=== PATIENT | female | born 1960 | race Caucasian/White ===

== ENCOUNTER → 2017-09-13 | Outpatient (CLI) | payer MEDICARE, OTHER ==
--- NOTE | 2017-09-13 09:05 | CT ---
EXAMINATION TYPE: CT iac wo con DATE OF EXAM: 09/13/2017 COMPARISON: NONE HISTORY: Unspecified cholesteatoma CT DLP: 150.00mGycm Automated exposure control for dose reduction was used. FINDINGS: The external auditory canals are patent bilaterally. Complete opacification right-sided mastoid air cells compatible with mastoiditis. No evidence of bone destruction. Left-sided mastoid air cells are well-aerated. There is thickening of the right-sided tympanic membrane. Left-sided tympanic membrane has a normal a ppearance. Small amount of soft tissue seen within the right-sided epitympanum which may reflect cholesteatoma. Left-sided epitympanic and is free of soft tissue. Ossicular chains are symmetric and free of erosive or destructive process. The scutum is preserved bilaterally. The cochlea and the semicircular canals are symmetric and unremarkable. Vestibular aqueduct and inte rnal carotid canal appear unremarkable. Temporomandibular joints are maintained bilaterally. IMPRESSION: 1. The findings as discussed for which I cannot exclude a small right-sided cholesteatoma. 2. Thickening of the right tympanic membrane. 3. Near complete opacification right-sided mastoid air cells.
== END | disposition home or self-care (01) ==
LOC: RADCTMAIN 07:30
PROVIDERS: ATTEND Otolaryngology
DX: H73.891 Other specified disorders of tympanic membrane, right ear (principal)
CPT/HCPCS: 70480

== ENCOUNTER → 2018-03-14 | Outpatient (CLI) | payer MEDICARE, OTHER ==
[2018-03-14 12:49] LABS: ALT 26 U/L (9-52); AST 20 U/L (14-36); Cholesterol 232 mg/dL (<200); HDL Cholesterol 83 mg/dL (40-60); LDL Cholesterol,Calculated 134 mg/dL (0-99); Triglycerides 76 mg/dL (<150)
== END | disposition home or self-care (01) ==
LOC: LABWHC1 11:58
PROVIDERS: ATTEND Internal Medicine Cardiovascular Disease
DX: E78.2 Mixed hyperlipidemia (principal)
CPT/HCPCS: 36415; 80061; 84450; 84460

== ENCOUNTER 2019-05-30 13:48 | Observation (INO) | payer MEDICARE ==
[2019-05-30] MEDS ORDERED: KETOROLAC 30 MG/ML 1 ML VIAL IVP STA (14:45)
[2019-05-30] MEDS ORDERED: SODIUM CHLORIDE 0.9% 1,000 ML IV STA (14:45)
--- NOTE | 2019-05-30 14:56 | ED ---
General Adult HPI - General Chief complaint: Chest Pain Stated complaint: Chest pain Time Seen by Provider: 05/30/19 14:33 Source: patient Mode of arrival: ambulatory - History of Present Illness Initial comments: Dictation was produced using [employer] dictation software. please excuse any grammatical, word or spelling errors. Chief Complaint: 58-year-old female presents with chest pain and flank pain. History of Present Illness: T 89-year-old female presents today with chest pain and flank pain. She is here mostly for the left-sided flank pain. Patient has any history of kidney stones. States that the pain is colicky and was up in the left flank however is now down to the left groin. Patient denies any urinary symptoms. She is not sure if there is any difference in her urine appearance. Patient has a history of chest pain. She's been having intermittent chest pain episodes for the last several months. She does have established care with cardiology. 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 Patient states that her remediation consultant did not want to perform any further studies. Patient states pain is like a squeezing pressure to the chest with radiation to the bilateral shoulders patient does complain of some clammy diaphoresis and nausea during these episodes patient used to be an opiate abuser however she has been sober from opiates for approximately one year. The ROS documented in this emergency department record has been reviewed and confirmed by me. Those systems with pertinent positive or negative responses have been documented in the HPI. All other systems are other negative and/or noncontributory. PHYSICAL EXAM: General Impression: Alert and oriented x3, mild distress HEENT: Normocephalic atraumatic, extra-ocular movements intact, pupils equal and reactive to light bilaterally, mucous membranes moist. Cardiovascular: Heart regular rate and rhythm, S1&S2 audible, no murmurs, rubs or gallops Chest: Lungs clear to auscultation bilaterally, no rhonchi, no wheeze, no rales Abdomen: Bowel sounds present, abdomen soft, non-tender, non-distended, no organomegaly, mild left CVA tenderness Musculoskeletal: Pulses present and equal in all extremities, no peripheral edema Motor: no focal deficits noted Neurological: CN II-XII grossly intact, no focal motor or sensory deficits noted Skin: Intact with no visualized rashes Psych: Normal affect and mood ED course: 58 yo female presents with chest pain and flank pain. Vital signs upon arrival are within acceptable limits. EKG shows no findings to suggest ST segment elevation TN versus myocardial ischemia. Laboratory evaluation obtained. CBC, coag panel, metabolic panel is unremarkable. First troponin is negative. Chest x-ray shows no acute processes. CT of the abdomen is pelvis was obtained showing no acute processes. No hydronephrosis. No identifiable kidney stones. Pending urine studies. Patient also had secondary complaint of chest pain. Patient's chest pain is atypical chest pain with typical features. His cardiac workup so far is negative. Patient to be admitted for surgical needs a cardiology consultation. EKG interpretation: Ventricular rate 4, sinus rhythm, AR interval 112, QRS 86, QTC 411. No AR prolongation, no QTC prolongation, no ST or T-wave changes noted. No old EKG for comparison. - Related Data Home Medications Medication Instructions Recorded Confirmed Albuterol Sulfate [Ventolin HFA] 2 puff INHALATION RT-Q4H PRN 05/30/19 05/30/19 Aspirin 325 mg PO DAILY PRN 05/30/19 05/30/19 Atorvastatin [Lipitor] 40 mg PO HS 05/30/19 05/30/19 Naproxen Sodium [Aleve] 220 mg PO DAILY PRN 05/30/19 05/30/19 Umeclidinium [place] [Incruse 1 puff INHALATION RT-DAILY 05/30/19 05/30/19 Ellipta] Allergies Allergy/AdvReac Type Severity Reaction Status Date / Time Penicillins AdvReac Swelling Verified 05/30/19 15:24 Review of Systems ROS Statement: Those systems with pertinent positive or pertinent negative responses have been documented in the HPI. ROS Other: All systems not noted in ROS Statement are negative. Past Medical History Past Medical History: CVA/TIA Additional Past Medical History / Comment(s): TIA x3, back and lt shoulder pain History of Any Multi-Drug Resistant Organisms: None Reported Past Surgical History: Breast Surgery, Ear Surgery Additional Past Surgical History / Comment(s): lumpectomy Past Anesthesia/Blood Transfusion Reactions: Motion Sickness Past Psychological History: No Psychological Hx Reported Smoking Status: Former smoker Past Alcohol Use History: None Reported Past Drug Use History: None Reported - Past Family History Sister(s) Additional Family Medical History / Comment(s): autoimmune-crohns, lupus Mother Family Medical History: Congestive Heart Failure (CHF), Diabetes Mellitus, Renal Disease Course Vital Signs 05/30/19 05/30/19 13:54 17:10 Temperature 98.2 F Pulse Rate 86 76 Respiratory 18 20 Rate Blood Pressure 146/92 119/89 O2 Sat by Pulse 99 99 Oximetry Medical Decision Making - Lab Data Result diagrams: 05/30/19 14:40 05/30/19 14:40 Lab Results 05/30/19 05/30/19 05/30/19 Range/Units 14:40 14:40 14:40 WBC 11.0 H (3.8-10.6) k/uL RBC 3.86 (3.80-5.40) m/uL Hgb 12.7 (11.4-16.0) gm/dL Hct 38.4 (34.0-46.0) % MCV 99.4 (80.0-100.0) fL MCH 32.8 (25.0-35.0) pg MCHC 33.0 (31.0-37.0) g/dL RDW 12.6 (11.5-15.5) % Plt Count 367 (150-450) k/uL Neutrophils % 84 % Lymphocytes % 7 % Monocytes % 5 % Eosinophils % 1 % Basophils % 1 % Neutrophils # 9.2 H (1.3-7.7) k/uL Lymphocytes # 0.8 L (1.0-4.8) k/uL Monocytes # 0.5 (0-1.0) k/uL Eosinophils # 0.2 (0-0.7) k/uL Basophils # 0.1 (0-0.2) k/uL PT 9.5 (9.0-12.0) sec INR 0.9 (<1.2) APTT 23.7 (22.0-30.0) sec Sodium 140 (137-145) mmol/L Potassium 4.2 (3.5-5.1) mmol/L Chloride 106 (98-107) mmol/L Carbon Dioxide 20 L (22-30) mmol/L Anion Gap 14 mmol/L BUN 16 (7-17) mg/dL Creatinine 0.53 (0.52-1.04) mg/dL Est GFR (CKD-EPI)AfAm >90 (>60 ml/min/1.73 sqM) Est GFR (CKD-EPI)NonAf >90 (>60 ml/min/1.73 sqM) Glucose 114 H (74-99) mg/dL Calcium 9.8 (8.4-10.2) mg/dL Magnesium 2.0 (1.6-2.3) mg/dL Total Bilirubin 1.0 (0.2-1.3) mg/dL AST 32 (14-36) U/L ALT 38 (9-52) U/L Alkaline Phosphatase 108 (38-126) U/L Troponin I (0.000-0.034) ng/mL Total Protein 7.4 (6.3-8.2) g/dL Albumin 4.4 (3.5-5.0) g/dL 05/30/19 Range/Units 14:40 WBC (3.8-10.6) k/uL RBC (3.80-5.40) m/uL Hgb (11.4-16.0) gm/dL Hct (34.0-46.0) % MCV (80.0-100.0) fL MCH (25.0-35.0) pg MCHC (31.0-37.0) g/dL RDW (11.5-15.5) % Plt Count (150-450) k/uL Neutrophils % % Lymphocytes % % Monocytes % % Eosinophils % % Basophils % % Neutrophils # (1.3-7.7) k/uL Lymphocytes # (1.0-4.8) k/uL Monocytes # (0-1.0) k/uL Eosinophils # (0-0.7) k/uL Basophils # (0-0.2) k/uL PT (9.0-12.0) sec INR (<1.2) APTT (22.0-30.0) sec Sodium (137-145) mmol/L Potassium (3.5-5.1) mmol/L Chloride (98-107) mmol/L Carbon Dioxide (22-30) mmol/L Anion Gap mmol/L BUN (7-17) mg/dL Creatinine (0.52-1.04) mg/dL Est GFR (CKD-EPI)AfAm (>60 ml/min/1.73 sqM) Est GFR (CKD-EPI)NonAf (>60 ml/min/1.73 sqM) Glucose (74-99) mg/dL Calcium (8.4-10.2) mg/dL Magnesium (1.6-2.3) mg/dL Total Bilirubin (0.2-1.3) mg/dL AST (14-36) U/L ALT (9-52) U/L Alkaline Phosphatase (38-126) U/L Troponin I <0.012 (0.000-0.034) ng/mL Total Protein (6.3-8.2) g/dL Albumin (3.5-5.0) g/dL Disposition Clinical Impression: Chest pain, Flank pain Disposition: ADMITTED IP TO THIS HOSP Condition: Fair Referrals: Kim Tang MD [Primary Care Provider] - 1-2 days Decision Time: 17:30
[2019-05-30 15:00] LABS: Basophils # (A) 0.1 k/uL (0-0.2); Basophils % (A) 1 %; Eosinophils # (A) 0.2 k/uL (0-0.7); Eosinophils % (A) 1 %; HCT 38.4 % (34.0-46.0); HGB 12.7 gm/dL (11.4-16.0); Lymphocytes # (A) 0.8 k/uL (1.0-4.8); Lymphocytes % (A) 7 %; MCH 32.8 pg (25.0-35.0); MCV 99.4 fL (80.0-100.0); Mean Platelet Volume 6.7; Monocytes # (A) 0.5 k/uL (0-1.0); Monocytes % (A) 5 %; Neutrophils # (A) 9.2 k/uL (1.3-7.7); Neutrophils % (A) 84 %; Platelet Count 367 k/uL (150-450); RBC 3.86 m/uL (3.80-5.40); RDW 12.6 % (11.5-15.5)
[2019-05-30 15:09] LABS: INR 0.9 (<1.2); Partial Thromboplastin Time 23.7 sec (22.0-30.0); Prothrombin Time 9.5 sec (9.0-12.0)
[2019-05-30 15:22] LABS: ALT 38 U/L (9-52); AST 32 U/L (14-36); African American GFR (CKD) >90 (>60 ml/min/1.73 sqM); Albumin 4.4 g/dL (3.5-5.0); Alkaline Phosphatase 108 U/L (38-126); Anion Gap 14 mmol/L; Blood Urea Nitrogen 16 mg/dL (7-17); Calcium 9.8 mg/dL (8.4-10.2); Carbon Dioxide 20 mmol/L (22-30); Chloride 106 mmol/L (98-107); Glucose 114 mg/dL (74-99); Potassium 4.2 mmol/L (3.5-5.1); Sodium 140 mmol/L (137-145); Total Protein 7.4 g/dL (6.3-8.2)
--- NOTE | 2019-05-30 15:34 | XR ---
EXAMINATION TYPE: XR chest 2V DATE OF EXAM: 05/30/2019 COMPARISON: 10/18/2012 TECHNIQUE: PA and lateral views submitted. HISTORY: Chest pain FINDINGS: The lungs are clear and there is no pneumothorax, pleural effusion, or focal pneumonia. Arthropathy of the right shoulder. Biapical pleural thickening. No overt failure. Hypertrophic change of the spi ne. Heart size normal. IMPRESSION: 1. No acute process.
[2019-05-30] MEDS ORDERED: MORPHINE SULFATE 4 MG/ML SYRINGE IV STA (15:47)
--- NOTE | 2019-05-30 16:49 | CT ---
EXAMINATION TYPE: CT abdomen pelvis w con DATE OF EXAM: 05/30/2019 COMPARISON: HISTORY: Abdominal pain and vomiting CT DLP: 783 mGycm Automated exposure control for dose reduction was used. TECHNIQUE: Helical acquisition of images was performed from the lung bases through the pelvis. CONTRAST: Performed without Oral Contrast and with IV Contrast, patient injected with 100 mL of Isovue 300. FINDINGS: Lung bases are clear of infiltrate. There is no pleural effusion. Heart size is normal. There is no p ericardial effusion. Stomach appears normal. Liver spleen pancreas gallbladder appear normal. Bile ducts are not dilated. There is no adrenal mass. Kidneys show satisfactory contrast opacification. There is no hydronephrosi s. Ureters are not dilated. There is no retroperitoneal adenopathy. Bladder distends smoothly. There is no free fluid in the pelvis. There is no mesenteric edema. Appendix is seen and appears normal. There are some jejunal loops with mild wall thickening. There is thickening of the third and fourth p art of the duodenum. I see no gastric wall thickening. There is moderate narrowing of the disc spaces at L2-3 and L3-4 with spur formation. There is no comp ression fracture. Vertebra have normal alignment. Bony pelvis is intact. There is a mild relative spi nal stenosis at L2-3. Uterus is anteverted. There is no inguinal hernia. Distal small bowel loops tl ear normal. IMPRESSION: MILD WALL THICKENING OF THE PROXIMAL JEJUNUM AND THE DISTAL DUODENUM THAT COULD RELATE TO GASTROENTER ITIS. OTHERWISE NEGATIVE EXAM. NO EVIDENCE OF A BOWEL OBSTRUCTION.
[2019-05-30 17:31] LABS: Appearance,Urine Clear (Clear); Bilirubin,Urine Negative (Negative); Blood,Urine Negative (Negative); Color,Urine Yellow; Glucose,Urine (UA) Negative (Negative); Ketones,Urine 2+ (Negative); Leukocyte Esterase,Urine Small (Negative); Mucus,Urine Rare /hpf; Nitrite,Urine Negative (Negative); PH, Urine 6.5 (5.0-8.0); Protein,Urine Negative (Negative); RBC,Urine 5 /hpf (0-5); Specific Gravity,Urine 1.038 (1.001-1.035); Squamous Epithelial Cell,Urine 5 /hpf (0-4); Urobilinogen,Urine <2.0 mg/dL (<2.0)
[2019-05-30] MEDS ORDERED: ASPIRIN 81 MG PO STA (17:31)
[2019-05-30] MEDS ORDERED: NITROGLYCERIN SL TABS 0.4 MG TAB SUBLINGUAL PRN (17:31)
[2019-05-30] MEDS ORDERED: MAGNESIUM HYDROXIDE 2,400 MG/10 ML CUP PO PRN (18:47)
[2019-05-30] MEDS ORDERED: ALBUTEROL NEBULIZED 2.5 MG/3 ML INHALATION PRN (19:00)
[2019-05-30] MEDS ORDERED: NALOXONE 0.4 MG/ML 1 ML VIAL IV PRN (19:00)
--- NOTE | 2019-05-30 19:36 | P.HPIM ---
History of Present Illness H&P Date: 05/30/19 Chief Complaint: Chest pain 58 year old F with PMH of COPD presents to the ED for chest pain. Patient reports chest pain that has been ongoing for the past 2 years. Patient s madisyn she sees Dr. Gaytan and gets a stress test yearly. Her stress test in the past has been negative. Patient reports chest pain that started this morning. Pain is 11/10 in severity described as pressure like. There are no alleviating or aggravating factors. Patient also complains of left lower quadrant abdominal pain that radiates into the left groin. She denies any urinary symptoms. Patient reports constipation, last bowel movement was 4 days ago. She attempted to have a bowel movement today, small bowel movement with streaks of blood on the toilet paper. Patient also reports bilateral shoulder pain that radiates to both of her arms. This has been ongoing for quite some time. She denies any neck pain. Patient denies any headache, lower extremity edema, nausea or vomiting, fever or chills, cough, shortness of breath, palpitations, dizziness, numbness/weakness/tingling of the extremities. Patient is admitted for chest pain, rule out acute coronary syndrome, Cardiology is consulted. Past Medical History Past Medical History: COPD, CVA/TIA, Eye Disorder, Hearing Disorder / Deafness, Hyperlipidemia, Musculoskeletal Disorder Additional Past Medical History / Comment(s): TIA x3, back and lt shoulder pain, dry eyes, holes in ear drums, L2-L4 stenosis with spurs, arthritis History of Any Multi-Drug Resistant Organisms: None Reported Past Surgical History: Breast Surgery, Ear Surgery Additional Past Surgical History / Comment(s): lumpectomy Past Anesthesia/Blood Transfusion Reactions: Motion Sickness Past Psychological History: Anxiety Smoking Status: Former smoker Past Alcohol Use History: None Reported Additional Past Alcohol Use History / Comment(s): smoked 41 years 3ppd Past Drug Use History: Marijuana Additional Drug Use History / Comment(s): medical marijuana card guevara - Past Family History Sister(s) Additional Family Medical History / Comment(s): autoimmune-crohns, lupus Mother Family Medical History: Congestive Heart Failure (CHF), Diabetes Mellitus, Renal Disease Medications and Allergies Home Medications Medication Instructions Recorded Confirmed Type Albuterol Sulfate [Ventolin HFA] 2 puff INHALATION RT-Q4H PRN 05/30/19 05/30/19 History Aspirin 325 mg PO DAILY PRN 05/30/19 05/30/19 History Atorvastatin [Lipitor] 40 mg PO HS 05/30/19 05/30/19 History Naproxen Sodium [Aleve] 220 mg PO DAILY PRN 05/30/19 05/30/19 History Umeclidinium [place] [Incruse 1 puff INHALATION RT-DAILY 05/30/19 05/30/19 History Ellipta] Allergies Allergy/AdvReac Type Severity Reaction Status Date / Time adhesive AdvReac Rash/Hives Verified 05/30/19 18:37 Penicillins AdvReac Swelling Verified 05/30/19 15:24 Physical Exam Vitals: Vital Signs Temp Pulse Pulse Resp BP BP Pulse Ox 05/30/19 18:17 97.8 F 85 19 149/81 98 05/30/19 17:55 98.2 F 83 20 132/78 98 05/30/19 17:10 76 20 119/89 99 05/30/19 13:54 98.2 F 86 18 146/92 99 Intake and Output 05/30/19 05/30/19 05/30/19 06:59 14:59 22:59 Other: Weight 68.039 kg General: [non toxic], [no distress], [appears at stated age] Derm: [warm], [dry] Head: [atraumatic], [normocephalic], [symmetric] Eyes: [EOMI], [no lid lag], [anicteric sclera] Mouth: [no lip lesion], [mucus membranes moist] Cardiovascular: [S1S2 reg], [no murmur], [positive DP pulse bilateral], Lungs: [CTA bilateral], [no rhonchi, no rales] , [no accessory muscle use] Abdominal: [soft], [ nontender to palpation], [no guarding], [no appreciable organomegaly] Ext: [no gross muscle atrophy], [no edema], [no contractures] Neuro: [ CN II-XI grossly intact], [no focal neuro deficits] Psych: [Alert], [oriented], [appropriate affect] Results CBC & Chem 7: 05/30/19 14:40 05/30/19 14:40 Labs: Abnormal Lab Results - Last 24 Hours (Table) 05/30/19 05/30/19 05/30/19 Range/Units 14:40 14:40 17:05 WBC 11.0 H (3.8-10.6) k/uL Neutrophils # 9.2 H (1.3-7.7) k/uL Lymphocytes # 0.8 L (1.0-4.8) k/uL Carbon Dioxide 20 L (22-30) mmol/L Glucose 114 H (74-99) mg/dL Ur Specific [place] 1.038 H (1.001-1.035) Urine Ketones 2+ H (Negative) Ur Leukocyte Esterase Small H (Negative) Ur Squamous Epith Cells 5 H (0-4) /hpf Urine Mucus Rare H (None) /hpf Thrombosis Risk Factor Assmnt - Choose All That Apply Any of the Below Risk Factors Present?: Yes Each Factor Represents 1 point: Abnormal pulmonary function (COPD), Age 41-60 years, Obesity (BMI >25) Other Risk Factors: No Other congenital or acquired thrombophilia - If yes, enter type in comment: No Thrombosis Risk Factor Assessment Total Risk Factor Score: 3 Thrombosis Risk Factor Assessment Level: Moderate Risk Assessment and Plan Assessment: Assessment and Plan Chest pain rule out acute coronary syndrome Leukocytosis Metabolic acidosis Abnormal UA Initial troponin negative. Plans: Trend troponin/EKG to rule out ACS. Telemetry monitoring. Cardiology consultation. Follow-up echocardiogram. Continue aspirin and Lipitor. No signs of infection. Afebrile. Plan: Continue to monitor. Bicarbonate of 20. Unknown significance. Plans: Repeat BMP in the morning. positive leukocyte esterase. Plans: Asymptomatic, no antibiotics indicated. DVT prophylaxis: [SCD] Discussed with: [Patient] Anticipated discharge: [1-2 days] Anticipated discharge place: [home] A total of [30] minutes was spent on the care of this complex patient more than 50% of the time was spent in counseling and care coordination. PCP is Dr. Tang. Patient is full code. Names her Theron decision- maker indicates that she can't make decisions for herself.
[2019-05-30] MEDS: MORPHINE SULFATE 2 MG/ML SYRINGE IVP PRN (20:39)
[2019-05-30] MEDS ORDERED: ATORVASTATIN 40 MG TAB PO SCH (21:00)
[2019-05-30] MEDS ORDERED: ONDANSETRON 4 MG/2 ML VIAL IVP PRN (21:03)
[2019-05-31] MEDS: MORPHINE SULFATE 2 MG/ML SYRINGE IVP PRN (02:09)
[2019-05-31 04:20] LABS: Cholesterol 205 mg/dL (<200); HDL Cholesterol 90 mg/dL (40-60); LDL Cholesterol,Calculated 99 mg/dL (0-99); Triglycerides 82 mg/dL (<150)
[2019-05-31] MEDS ORDERED: ACETAMINOPHEN TAB 325 MG TAB PO PRN (07:29)
[2019-05-31 08:13] LABS: African American GFR (CKD) >90 (>60 ml/min/1.73 sqM); Anion Gap 9 mmol/L; Blood Urea Nitrogen 14 mg/dL (7-17); Calcium 9.3 mg/dL (8.4-10.2); Carbon Dioxide 24 mmol/L (22-30); Chloride 106 mmol/L (98-107); Glucose 99 mg/dL (74-99); Potassium 4.1 mmol/L (3.5-5.1); Sodium 139 mmol/L (137-145)
[2019-05-31 08:24] LABS: Basophils % (A) 0 %; Eosinophils # (A) 0.3 k/uL (0-0.7); Eosinophils % (A) 3 %; HCT 38.3 % (34.0-46.0); HGB 12.9 gm/dL (11.4-16.0); Lymphocytes # (A) 1.3 k/uL (1.0-4.8); Lymphocytes % (A) 15 %; MCH 34.2 pg (25.0-35.0); MCHC 33.7 g/dL (31.0-37.0); MCV 101.3 fL (80.0-100.0); Mean Platelet Volume 6.5; Monocytes # (A) 0.5 k/uL (0-1.0); Monocytes % (A) 6 %; Neutrophils # (A) 6.5 k/uL (1.3-7.7); Neutrophils % (A) 74 %; Platelet Count 340 k/uL (150-450); RBC 3.78 m/uL (3.80-5.40); RDW 12.7 % (11.5-15.5); WBC 8.8 k/uL (3.8-10.6)
[2019-05-31 08:57] VITALS: RESP 16
[2019-05-31] MEDS ORDERED: ASPIRIN 325 MG TAB PO SCH (09:00)
[2019-05-31] MEDS ORDERED: ASPIRIN 81 MG PO SCH (09:00)
--- NOTE | 2019-05-31 11:34 | P.CRDCN ---
History of Present Illness History of present illness: This is a pleasant 58-year-old female past medical history significant for dyslipidemia, former nicotine dependence and history of TIA in the past. She follows in the office with Dr. Gaytan. We've been asked to see her in consultation secondary to chest discomfort. She states over the previous 3 weeks intermittently she has felt a intense pain in her back. She states it feels like somebody is squeezing both of her shoulders and pushing down on her body. The pain radiates down her torso and down both her arms. The pain is excruciating and brings her to her knees. When it happens it lasts for a few seconds until she flinches over and then the pain subsides. She denies any associated discomfort in the chest. At times she feels intermittent palpitations or fluttering in the chest, shortness of breath, lightheaded and nausea. She is seen and examined resting comfortably in bed in no acute distress. She states that the time she is pain-free. EKG obtained on admission is sinus mechanism with nonspecific abnormalities noted. Repeat EKG 2 both reveal persistent sinus mechanism. Telemetry tracings unremarkable for an acute arrhythmia. Chest x-ray is negative for an acute cardiopulmonary process. Laboratory data reviewed, cardiac enzymes negative 3. Currently cardiac medications include aspirin 81 mg daily and atorvastatin 40 mg daily. At the time of my exam: CONSTITUTIONAL: Denies fever. Denies chills. EYES: Denies blurred vision. Denies vision changes. Denies eye pain. EARS, NOSE, MOUTH & THROAT: Denies headache. Denies sore throat. Denies ear pain. CARDIOVASCULAR: Denies chest pain. Denies shortness of breath. Denies orthopnea. Denies PND. Denies palpitations. RESPIRATORY: Denies cough. GASTROINTESTINAL: Denies abdominal pain. Denies diarrhea. Denies constipation. Denies nausea. Denies vomiting. MUSCULOSKELETAL: Denies myalgias. INTEGUMENTARY: Denies pruitis. Denies rash. NEUROLOGIC: Denies numbness. Denies tingling. Denies weakness. PSYCHIATRIC: Denies anxiety. Denies depression. ENDOCRINE: Denies fatigue. Denies weight change. Denies polydipsia. Denies polyurina. GENITOURINARY: Denies burning, hematuria or urgency with micturation. HEMATOLOGIC: Denies history of anemia. Denies bleeding. Blood pressure 115/76 heart rate 81 afebrile maintaining oxygen saturation on room air GENERAL: This is a 58-year-old female in no apparent distress at the time of my examination. HEENT: Head is atraumatic, normocephalic. Pupils are equal, round. Sclerae anicteric. Conjunctivae are clear. Mucous membranes of the mouth are moist. Neck is supple. There is no jugular venous distention. No carotid bruit is heard. LUNGS: Clear to auscultation no wheezes, rales or rhonchi. No chest wall tenderness is noted on palpation or with deep breathing. HEART: Regular rate and rhythm without murmurs, rubs or gallops. S1 and S2 heard. ABDOMEN: Soft, nontender. Bowel sounds are heard. No organomegaly noted. EXTREMITIES: No evidence of peripheral edema and no calf tenderness noted. VASCULAR: Radial and dorsalis pedis pulses palpated, no evidence of clubbing. NEUROLOGIC: Patient is awake, alert and oriented x3. ASSESSMENT Chest pain, atypical. An acute coronary event has been ruled out. Dyslipidemia Former nicotine dependence PLAN Recent dobutamine stress test obtained from the office June 2018 was negative for stress-induced ischemia. Advised her to increase activity and ambulation in the halls. Stable for discharge from a cardiac perspective. Follow up with Dr. Gaytan upon discharge. Nurse Practitioner note has been reviewed, I agree with a documented findings and plan of care. Patient was seen and examined. Past Medical History Past Medical History: COPD, CVA/TIA, Eye Disorder, Hearing Disorder / Deafness, Hyperlipidemia, Musculoskeletal Disorder Additional Past Medical History / Comment(s): TIA x3, back and lt shoulder pain, dry eyes, holes in ear drums, L2-L4 stenosis with spurs, arthritis History of Any Multi-Drug Resistant Organisms: None Reported Past Surgical History: Breast Surgery, Ear Surgery Additional Past Surgical History / Comment(s): lumpectomy Past Anesthesia/Blood Transfusion Reactions: Motion Sickness Past Psychological History: Anxiety Smoking Status: Former smoker Past Alcohol Use History: None Reported Additional Past Alcohol Use History / Comment(s): smoked 41 years 3ppd Past Drug Use History: Marijuana Additional Drug Use History / Comment(s): medical marijuana card guevara - Past Family History Sister(s) Additional Family Medical History / Comment(s): autoimmune-crohns, lupus Mother Family Medical History: Congestive Heart Failure (CHF), Diabetes Mellitus, Renal Disease Medications and Allergies Home Medications Medication Instructions Recorded Confirmed Type Albuterol Sulfate [Ventolin HFA] 2 puff INHALATION RT-Q4H PRN 05/30/19 05/30/19 History Aspirin 325 mg PO DAILY PRN 05/30/19 05/30/19 History Atorvastatin [Lipitor] 40 mg PO HS 05/30/19 05/30/19 History Naproxen Sodium [Aleve] 220 mg PO DAILY PRN 05/30/19 05/30/19 History Umeclidinium [place] [Incruse 1 puff INHALATION RT-DAILY 05/30/19 05/30/19 History Ellipta] Allergies Allergy/AdvReac Type Severity Reaction Status Date / Time adhesive AdvReac Rash/Hives Verified 05/30/19 18:37 Penicillins AdvReac Swelling Verified 05/30/19 15:24 Physical Exam Vitals: Vital Signs Temp Pulse Pulse Resp BP BP Pulse Ox 05/31/19 04:00 98.2 F 69 18 106/61 98 05/31/19 00:00 98.1 F 80 18 118/69 97 05/30/19 18:17 97.8 F 85 19 149/81 98 05/30/19 17:55 98.2 F 83 20 132/78 98 05/30/19 17:10 76 20 119/89 99 05/30/19 13:54 98.2 F 86 18 146/92 99 Intake and Output 05/30/19 05/31/19 05/31/19 22:59 06:59 14:59 Other: Voiding Method Toilet Toilet # Voids 1 Results 05/31/19 08:09 05/31/19 03:32 Cardiac Enzymes 05/30/19 05/30/19 05/30/19 Range/Units 14:40 14:40 20:54 AST 32 (14-36) U/L Troponin I <0.012 <0.012 (0.000-0.034) ng/mL 05/31/19 Range/Units 03:32 AST (14-36) U/L Troponin I <0.012 (0.000-0.034) ng/mL Coagulation 05/30/19 Range/Units 14:40 PT 9.5 (9.0-12.0) sec APTT 23.7 (22.0-30.0) sec Lipids 05/31/19 Range/Units 03:32 Triglycerides 82 (<150) mg/dL Cholesterol 205 H (<200) mg/dL HDL Cholesterol 90 H (40-60) mg/dL CBC 05/30/19 Range/Units 14:40 WBC 11.0 H (3.8-10.6) k/uL RBC 3.86 (3.80-5.40) m/uL Hgb 12.7 (11.4-16.0) gm/dL Hct 38.4 (34.0-46.0) % Plt Count 367 (150-450) k/uL Comprehensive Metabolic Panel 05/30/19 Range/Units 14:40 Sodium 140 (137-145) mmol/L Potassium 4.2 (3.5-5.1) mmol/L Chloride 106 (98-107) mmol/L Carbon Dioxide 20 L (22-30) mmol/L BUN 16 (7-17) mg/dL Creatinine 0.53 (0.52-1.04) mg/dL Glucose 114 H (74-99) mg/dL Calcium 9.8 (8.4-10.2) mg/dL AST 32 (14-36) U/L ALT 38 (9-52) U/L Alkaline Phosphatase 108 (38-126) U/L Total Protein 7.4 (6.3-8.2) g/dL Albumin 4.4 (3.5-5.0) g/dL Current Medications Generic Name Dose Route Start Last Admin Trade Name Freq PRN Reason Stop Dose Admin Acetaminophen 650 mg 05/31/19 07:29 Tylenol Tab PO Q6HR PRN Fever and/ or Mild Pain Albuterol Sulfate 2.5 mg 05/30/19 19:00 Ventolin Nebulized INHALATION RT-QID PRN Shortness Of Breath Or Wheezing Aspirin 325 mg 05/31/19 09:00 Aspirin PO DAILY JERICHO Atorvastatin Calcium 40 mg 05/30/19 21:00 05/30/19 20:34 Lipitor PO 40 mg HS JERICHO Administration Magnesium Hydroxide 2,400 mg 05/30/19 18:47 05/30/19 20:34 Milk Of Magnesia PO 2,400 mg ONCE PRN Administration Constipation Morphine Sulfate 2 mg 05/30/19 18:49 05/31/19 02:09 Morphine Sulfate (Inj) IVP 2 mg Q4H PRN Administration Moderate Pain/Discomfort Naloxone HCl 0.2 mg 05/30/19 19:00 Narcan IV Q2M PRN Opioid Reversal Nitroglycerin 0.4 mg 05/30/19 17:31 Nitrostat SUBLINGUAL Q5M PRN Chest Pain Ondansetron HCl 4 mg 05/30/19 21:03 Zofran IVP Q6HR PRN Nausea And Vomiting Intake and Output 05/30/19 05/31/19 05/31/19 22:59 06:59 14:59 Other: Voiding Method Toilet Toilet # Voids 1 05/30/19 14:40 05/30/19 14:40
[2019-05-31 12:10] VITALS: BP 128/80; PULSE 60; TEMP 98.9
--- NOTE | 2019-05-31 12:14 | P.DS ---
Providers Date of admission: 05/30/19 17:31 Expected date of discharge: 05/31/19 Attending physician: Darling Huber MD Consults: 05/30/19 17:31 Consult Physician Urgent Consulting Provider: Josh Case Consult Reason/Comments: chest pain Do you want consulting provider notified?: Yes Primary care physician: Kim Tang MD Hospital Course: 58 year old F with PMH of COPD presents to the ED for chest pain. Patient reports chest pain that has been ongoing for the past 2 years. Patient states she sees Dr. Gaytan and gets a stress test yearly. Her stress test in the past has been negative. Patient reports chest pain that started this morning. Pain is 11/10 in severity described as pressure like. There are no alleviating or aggravating factors. Patient also complains of left lower quadrant abdominal pain that radiates into the left groin. She denies any urinary symptoms. Patient reports constipation, last bowel movement was 4 days ago. She attempted to have a bowel movement today, small bowel movement with streaks of blood on the toilet paper. Patient also reports bilateral shoulder pain that radiates to both of her arms. This has been ongoing for quite some time. She denies any neck pain. Patient denies any headache, lower extremity edema, nausea or vomiting, fever or chills, cough, shortness of breath, palpitations, dizziness, numbness/weakn ess/tingling of the extremities. Patient is admitted for chest pain, rule out acute coronary syndrome, Cardiology is consulted. Troponin was less than 0.0123 with EKG showing normal sinus rhythm. Acute coronary syndrome was ruled out. Cardiology was consulted and echocardiogram was obtained. Echocardiogram was pending at the time of discharge. Cardiology cleared the patient for discharge as she had recently had a stress test done in June. She was continued on aspirin and Lipitor. Patient was noted to have a leukocytosis of 11 on admission, thought to be noninfectious which was reso lved on day 2. Patient was noted to have a metabolic acidosis with a bicarbonate of 20 on admission which resolved on day 2. Patient was seen and examined. No acute events overnight. Patient has a chest pain, shortness breath or palpitations. No nausea or vomiting. No fever or chills. Looking forward to going home. General: [non toxic], [no distress], [appears at stated age] Derm: [warm], [dry] Head: [atraumatic], [normocephalic], [symmetric] Eyes: [EOMI], [no lid lag], [anicteric sclera] Mouth: [no lip lesion], [mucus membranes moist] Cardiovascular: [S1S2 reg], [no murmur], [positive posterior tibial pulse bilateral], Lungs: [CTA bilateral], [no rhonchi, no rales] , [no accessory muscle use] Abdominal: [soft], [ nontender to palpation], [no guarding], [no appreciable organomegaly] Ext: [no gross muscle atrophy], [no edema], [no contractures] Neuro: [ CN II-XI grossly intact], [no focal neuro deficits] Psych: [Alert], [oriented], [appropriate affect] Assessment and Plan Chest pain rule out acute coronary syndrome Abnormal UA Resolved: Leukocytosis and metabolic acidosis Initial troponin negative 3. ACS ruled out. Echocardiogram obtained, results pending. Plans: Telemetry monitoring. Cardiology consultation. Follow-up echocardiogram. Continue aspirin and Lipitor. Positive leukocyte esterase. Plans: Asymptomatic, no antibiotics indicated. [Cardiology cleared patient for discharge. DC today.] Pertinent Studies: Chest x-ray, CT abdomen and pelvis Patient Condition at Discharge: Stable Plan - Discharge Summary Discharge Rx Participant: No New Discharge Prescriptions: New traMADol HCL [Ultram] 50 mg PO Q4HR PRN 3 Days #18 tab PRN Reason: Pain Continue Albuterol Sulfate [Ventolin HFA] 2 puff INHALATION RT-Q4H PRN PRN Reason: Shortness Of Breath Naproxen Sodium [Aleve] 220 mg PO DAILY PRN PRN Reason: Pain Atorvastatin [Lipitor] 40 mg PO HS Aspirin 325 mg PO DAILY PRN PRN Reason: Chest Pain Umeclidinium [place] [Incruse Ellipta] 1 puff INHALATION RT-DAILY Discharge Medication List Albuterol Sulfate [Ventolin HFA] 2 puff INHALATION RT-Q4H PRN 05/30/19 [History] Aspirin 325 mg PO DAILY PRN 05/30/19 [History] Atorvastatin [Lipitor] 40 mg PO HS 05/30/19 [History] Naproxen Sodium [Aleve] 220 mg PO DAILY PRN 05/30/19 [History] Umeclidinium [place] [Incruse Ellipta] 1 puff INHALATION RT-DAILY 05/30/19 [H istory] traMADol HCL [Ultram] 50 mg PO Q4HR PRN 3 Days #18 tab 05/31/19 [Rx] Follow up Appointment(s)/Referral(s): Margo Menjivar MD [STAFF PHYSICIAN] - 1 Week Kim Tang MD [Primary Care Provider] - 1-2 days Activity/Diet/Wound Care/Special Instructions: Diet: Cardiac Follow-up PCP within 1-2 days of discharge. Follow-up cardiology within 1 week of discharge. Take all medications as advised. Discharge Disposition: HOME SELF-CARE
--- NOTE | 2019-05-31 17:00 | ECHOF ---
Referral Reason:chest pain MEASUREMENTS -------- HEIGHT: 160.0 cm WEIGHT: 68.0 kg BP: IVSd: 1.1 cm (0.6 - 1.1) LVIDd: 3.2 cm (3.9 - 5.3) LVPWd: 1.4 cm (0.6 - 1.1) IVSs: 1.5 cm LVIDs: 2.3 cm LVPWs: 1.8 cm LAESV Index (A-L): 12.16 ml/m Ao Diam: 2.6 cm (2.0 - 3.7) AV Cusp: 1.7 cm (1.5 - 2.6) LA Diam: 2.4 cm (2.7 - 3.8) MV EXCURSION: 17.896 mm (> 18.000) MV EF SLOPE: 101 mm/s (70 - 150) EPSS: 0.4 cm MV E Jb: 0.87 m/s MV DecT: 220 ms MV A Jb: 0.87 m/s MV E/A Ratio: 0.99 RAP: 5.00 mmHg RVSP: 11.24 mmHg TAPSE: 22.45 mm FINDINGS -------- Sinus rhythm. This was a technically good study. The left ventricular size is normal. There is mild concentric left ventricular hypertrophy. Overa ll left ventricular systolic function is normal with, an EF between 55 - 60 %. The diastolic fillin g pattern is normal for the age of the patient 11.46. The right ventricle is normal in size. The left atrial size is normal. Normal LA size by volume 22+/-6 ml/m2. The right atrial size is normal. Interatrial and interventricular septum intact. The aortic valve is trileaflet and appears structurally normal. The mitral valve is normal. There is trace mitral regurgitation. The tricuspid valve appears structurally normal. Trace tricuspid regurgitation present. Right frankie tricular systolic pressure is normal at < 35 mmHg. There is no pulmonic regurgitation present. The aortic root size is normal. Normal inferior vena cava with normal inspiratory collapse consistent with estimated right atrial pre ssure of 5 mmHg. There is no pericardial effusion. CONCLUSIONS -------- 1. Sinus rhythm. 2. This was a technically good study. 3. The left ventricular size is normal. 4. There is mild concentric left ventricular hypertrophy. 5. Overall left ventricular systolic function is normal with, an EF between 55 - 60 %. 6. The diastolic filling pattern is normal for the age of the patient 11.46 7. The right ventricle is normal in size. 8. The left atrial size is normal. 9. Normal LA size by volume 22+/-6 ml/m2. 10. The right atrial size is normal. 11. Interatrial and interventricular septum intact. 12. The aortic valve is trileaflet and appears structurally normal. 13. The mitral valve is normal. 14. There is trace mitral regurgitation. 15. The tricuspid valve appears structurally normal. 16. Trace tricuspid regurgitation present. 17. Right ventricular systolic pressure is normal at < 35 mmHg. 18. There is no pulmonic regurgitation present. 19. The aortic root size is normal. 20. Normal inferior vena cava with normal inspiratory collapse consistent with estimated right atrial pressure of 5 mmHg. 21. There is no pericardial effusion. AGRICULTURAL COMMODITIES INSPECTOR: Samreen Gee RDCS
== END 2019-05-31 12:22 | disposition home or self-care (01) ==
LOC: EC 13:48 → 1SOBS 17:31
PROVIDERS: ADMIT Family Medicine; ATTEND Family Medicine
DX: R07.89 Other chest pain (principal); R10.32 Left lower quadrant pain; R61 Generalized hyperhidrosis; R23.1 Pallor; R11.0 Nausea; M25.512 Pain in left shoulder; M54.9 Dorsalgia, unspecified; R00.2 Palpitations; R23.2 Flushing; R06.02 Shortness of breath; R42 Dizziness and giddiness; M25.511 Pain in right shoulder; R82.90 Unspecified abnormal findings in urine; D72.829 Elevated white blood cell count, unspecified; E78.5 Hyperlipidemia, unspecified; E87.2 Acidosis; F41.9 Anxiety disorder, unspecified; H91.90 Unspecified hearing loss, unspecified ear; J44.9 Chronic obstructive pulmonary disease, unspecified; K59.00 Constipation, unspecified; M48.061 Spinal stenosis, lumbar region without neurogenic claudication; M19.90 Unspecified osteoarthritis, unspecified site; I24.0 Acute coronary thrombosis not resulting in myocardial infarction; E66.9 Obesity, unspecified; Z68.26 Body mass index [BMI] 26.0-26.9, adult; Z79.82 Long term (current) use of aspirin; Z79.899 Other long term (current) drug therapy; Z86.73 Personal history of transient ischemic attack (TIA), and cerebral infarction without residual deficits; Z87.442 Personal history of urinary calculi; Z87.891 Personal history of nicotine dependence; Z88.0 Allergy status to penicillin; Z91.048 Other nonmedicinal substance allergy status; Z88.8 Allergy status to other drugs, medicaments and biological substances; Z79.1 Long term (current) use of non-steroidal anti-inflammatories (NSAID); Z82.49 Family history of ischemic heart disease and other diseases of the circulatory system; Z83.3 Family history of diabetes mellitus; Z84.1 Family history of disorders of kidney and ureter; Z84.89 Family history of other specified conditions
CPT/HCPCS: 96376 ×2; 96361; 96374; 96375; 99285; 36415; 93005; 93306; 80061; 80053; 80048; 83735; 84484 ×2; 85025 ×2; 85610; 85730; 81001; 71046; 74177; G0378 ×2; J2270 ×3; J1885

== ENCOUNTER 2021-02-11 19:58 | Emergency (ER) | payer MEDICARE, OTHER ==
[2021-02-11 20:08] VITALS: TEMP 97.9
--- NOTE | 2021-02-11 20:19 | ED ---
Skin/Abscess/FB HPI - General Chief complaint: Skin/Abscess/Foreign Body Stated complaint: Left elbow injury Time Seen by Provider: 02/11/21 20:10 Source: patient Mode of arrival: ambulatory Limitations: no limitations - History of Present Illness Initial comments: 60-year-old female presents to the emergency department with a chief complaint of left elbow pain. Patient reports about 2 days ago she scratched her left elbow and has now reported gradual increase in swelling with overlying senility skin changes. Patient reports some pain to the touch but has full range of motion gallop. States she has noticed some clear discharge from her elbow. She denies any history of MRSA but states her daughter had it so she might have contracted as well. She denies any fevers or chills. Patient has history of autoimmune conditions. - Related Data Home Medications Medication Instructions Recorded Confirmed Albuterol Sulfate [Ventolin HFA] 2 puff INHALATION RT-Q4H PRN 05/30/19 05/30/19 Aspirin 325 mg PO DAILY PRN 05/30/19 05/30/19 Atorvastatin [Lipitor] 40 mg PO HS 05/30/19 05/30/19 Naproxen Sodium [Aleve] 220 mg PO DAILY PRN 05/30/19 05/30/19 Umeclidinium [place] [Incruse 1 puff INHALATION RT-DAILY 05/30/19 05/30/19 Ellipta] Previous Rx's Medication Instructions Recorded traMADol HCL [Ultram] 50 mg PO Q4HR PRN 3 Days #18 tab 05/31/19 Cephalexin [Keflex] 500 mg PO Q6HR #40 cap 02/11/21 Sulfamethox-Tmp 800-160Mg [Bactrim 1 each PO Q12HR #20 tab 02/11/21 Ds] Allergies Allergy/AdvReac Type Severity Reaction Status Date / Time adhesive AdvReac Rash/Hives Verified 02/11/21 20:08 Penicillins AdvReac Swelling Verified 02/11/21 20:08 Review of Systems ROS Statement: Those systems with pertinent positive or pertinent negative responses have been documented in the HPI. ROS Other: All systems not noted in ROS Statement are negative. Past Medical History Past Medical History: COPD, CVA/TIA, Eye Disorder, Hearing Disorder / Deafness, Hyperlipidemia, Musculoskeletal Disorder Additional Past Medical History / Comment(s): TIA x3, back and lt shoulder pain, dry eyes, holes in ear drums, L2-L4 stenosis with spurs, arthritis History of Any Multi-Drug Resistant Organisms: None Reported Past Surgical History: Breast Surgery, Ear Surgery Additional Past Surgical History / Comment(s): lumpectomy Past Anesthesia/Blood Transfusion Reactions: Motion Sickness Past Psychological History: Anxiety Smoking Status: Current every day smoker Past Alcohol Use History: None Reported Past Drug Use History: Marijuana - Past Family History Sister(s) Additional Family Medical History / Comment(s): autoimmune-crohns, lupus Mother Family Medical History: Congestive Heart Failure (CHF), Diabetes Mellitus, Renal Disease General Exam Limitations: no limitations General appearance: alert, in no apparent distress Head exam: Present: atraumatic, normocephalic, normal inspection Eye exam: Present: normal appearance, PERRL, EOMI Pupils: Present: normal accommodation ENT exam: Present: normal exam, normal oropharynx, mucous membranes moist, TM's normal bilaterally Neck exam: Present: normal inspection, full ROM. Absent: tenderness, lymphadenopathy Respiratory exam: Present: normal lung sounds bilaterally. Absent: respiratory distress, wheezes, rales, rhonchi, stridor Cardiovascular Exam: Present: regular rate, normal rhythm, normal heart sounds Extremities exam: Present: full ROM, tenderness (Mild tenderness on the left elbow), normal capillary refill. Absent: normal inspection (Mild swelling with overlying cellulitic skin changes noted on the left elbow. There is also an area with clear liquid discharge.), pedal edema, joint swelling, calf tenderness Back exam: Present: normal inspection, full ROM. Absent: tenderness Neurological exam: Present: alert, oriented X3 Psychiatric exam: Present: normal affect, normal mood Skin exam: Present: warm, dry, intact, normal color Course Vital Signs 02/11/21 02/11/21 20:05 21:31 Temperature 97.9 F Pulse Rate 87 80 Respiratory 18 16 Rate Blood Pressure 118/77 124/78 O2 Sat by Pulse 99 100 Oximetry Medical Decision Making - Medical Decision Making 60-year-old female presents emergency Department with a chief complaint of left elbow pain. On physical examination, she has mild swelling over the olecranon with overlying cellulitic skin changes and mild tenderness to the touch. There is also a Center area with serosanguineous discharge. X-ray shows no acute findings. I will start the patient Bactrim and Keflex. Advised her to apply warm compresses to the region. Advised to return to emergency department if symptoms worsen. She does not have any fevers or chills. Case discussed with Disposition Clinical Impression: Cellulitis Disposition: HOME SELF-CARE Condition: Stable Instructions (If sedation given, give patient instructions): Cellulitis (DC) Additional Instructions: Take prescribed medication as directed. Follow-up with the primary care physician. Return to emergency department if symptoms worsen. Prescriptions: Sulfamethox-Tmp 800-160Mg [Bactrim Ds] 1 each PO Q12HR #20 tab Cephalexin [Keflex] 500 mg PO Q6HR #40 cap Is patient prescribed a controlled substance at d/c from ED?: No Referrals: Loni Hogan NPC [Family Provider] - 1-2 days Time of Disposition: 21:27
--- NOTE | 2021-02-11 21:05 | XR ---
EXAMINATION TYPE: XR elbow complete LT DATE OF EXAM: 02/11/2021 COMPARISON: NONE HISTORY: Elbow pain TECHNIQUE: 3 views FINDINGS: I see no fracture nor dislocation. Joint spaces are normal. There is no sign of elbow joint effusion. There is posterior soft tissue swelling. IMPRESSION: No fracture. There is posterior soft tissue swelling that could relate to olecranon bursi tis.
[2021-02-11] MEDS ORDERED: CEPHALEXIN 500 MG CAP PO STA (21:26)
[2021-02-11] MEDS ORDERED: SULFAMETHOX-TMP 800-160MG 1 EACH TAB PO STA (21:26)
[2021-02-11 21:32] VITALS: BP 124/78; PULSE 80; RESP 16
== END 2021-02-11 21:37 | disposition home or self-care (01) ==
LOC: EC 19:58
DX: L03.114 Cellulitis of left upper limb (principal); J44.9 Chronic obstructive pulmonary disease, unspecified; E78.5 Hyperlipidemia, unspecified; F17.200 Nicotine dependence, unspecified, uncomplicated; F12.90 Cannabis use, unspecified, uncomplicated; Z79.82 Long term (current) use of aspirin; Z86.73 Personal history of transient ischemic attack (TIA), and cerebral infarction without residual deficits
CPT/HCPCS: 99283

== ENCOUNTER → 2022-11-15 | Outpatient (CLI) | payer MEDICARE, OTHER ==
--- NOTE | 2022-11-15 21:42 | MR ---
EXAMINATION TYPE: MR cspine/lspine wo con DATE OF EXAM: 11/15/2022 9:18 PM CLINICAL INDICATION:Female, 62 years old with history of M54.40 M54.2 Neck pain that radiates down harshad th arms to fingers, low back pain that radiates down both legs. COMPARISON: 06/30/2015 TECHNIQUE: Multi planar, multi sequence imaging was performed utilizing: T1-weighted, T2-weighted, a nd turbo inversion recovery imaging of the cervical and lumbar spine. MR contrast: IV Contrast: None. FINDINGS: CERVICAL: Alignment: The cervical vertebral bodies have preserved heights. Alignment is within normal limits gi frankie patient positioning. Bones: Mild presumably reactive bony edema at the superior endplate of C6. Cord: The spinal cord is unremarkable with regards to their signal intensity and morphology. Discs: C2-C3: No significant disc pathology. The spinal canal is patent. No neural foraminal stenosis. C3-C4: A disc osteophyte complex is present which minimally narrows the ventral subarachnoid space. Bilateral facet and uncovertebral joint arthropathy are present with moderate right and mild left ne ural foraminal stenosis. C4-C5: No significant disc pathology. The spinal canal is patent. Bilateral facet and uncovertebral joint arthropathy are present with mild bilateral neural foraminal stenosis. C5-C6: A disc osteophyte complex is present with mild spinal canal stenosis. Bilateral facet and unc overtebral joint arthropathy are present with moderate to severe bilateral neural foraminal stenosis. C6-C7: No significant disc pathology. The spinal canal is patent. Bilateral facet and uncovertebral joint arthropathy are present with moderate to severe bilateral neural foraminal stenosis. C7-T1: No significant disc pathology. The spinal canal is patent. No neural foraminal stenosis. Other: None. LUMBAR: Alignment: The lumbar vertebral bodies have preserved heights with straightening of the alignment of the lumbar spine.. Cord: The conus medullaris and the distal spinal cord appear unremarkable with regards to their signa l intensity and morphology. Bones/Discs: Scattered Modic endplate changes are seen throughout the spine. Multilevel degenerative disc disease is noted and most pronounced at the L2-L3 and L3-L4 disc space narrowing, osteophytes an d facet joint arthropathy. Disc desiccation is present throughout the spine. T12-L1: No evidence of significant spinal canal stenosis or neural foraminal stenosis. L1-L2: No evidence of significant spinal canal stenosis or neural foraminal stenosis. L2-L3: Central disc protrusion without significant spinal canal stenosis. Moderate bilateral neural f oraminal stenosis. L3-L4: Disc bulge and facet joint arthropathy result in mild spinal canal and moderate to severe bila teral neural foraminal stenosis. L4-L5: Disc bulge and facet joint arthropathy result in mild spinal canal and mild right and moderate to severe left neural foraminal stenosis. L5-S1: The disc is rounded posterior morphology without significant spinal canal stenosis. Facet join t arthropathy with mild neural foraminal stenosis. Bilateral facet joint effusions right greater than left. Other findings: None. IMPRESSION: 1. C5-C6 moderate spinal canal stenosis. 2. Multilevel neural foraminal stenosis throughout the cervical spine worse at C5-C6 and C6-C7 with moderate to severe neural foraminal stenosis bilaterally. 3. L4-L5 moderate severe left neural foraminal stenosis. 4. L2-L3 central disc protrusion without significant spinal canal stenosis. 5. No evidence for spinal fracture.
== END | disposition home or self-care (01) ==
LOC: RADMRIMAIN 20:45
PROVIDERS: ATTEND Psychiatry & Neurology Neurology
DX: M51.26 Other intervertebral disc displacement, lumbar region (principal); M48.02 Spinal stenosis, cervical region; M99.71 Connective tissue and disc stenosis of intervertebral foramina of cervical region; M99.73 Connective tissue and disc stenosis of intervertebral foramina of lumbar region
CPT/HCPCS: 72141; 72148

== ENCOUNTER → 2023-07-18 | Outpatient (CLI) | payer MEDICARE, OTHER ==
--- NOTE | 2023-07-18 15:59 | XR ---
EXAMINATION TYPE: XR chest 2V DATE OF EXAM: 07/18/2023 COMPARISON: 05/30/2019 HISTORY: 62-year-old female E83.52, high cholesterol TECHNIQUE: Frontal and lateral views FINDINGS: The cardiomediastinal silhouette, aorta, and pulmonary vasculature are within normal limits. Mild hyp erinflation. No consolidation or pleural effusion. Right apical pleural-parenchymal scarring. IMPRESSION: COPD. No acute process seen.
== END | disposition home or self-care (01) ==
LOC: RADXRMAIN 15:42
PROVIDERS: ATTEND Internal Medicine
DX: J44.9 Chronic obstructive pulmonary disease, unspecified (principal); E83.52 Hypercalcemia
CPT/HCPCS: 71046

== ENCOUNTER → 2023-07-18 | Outpatient (CLI) | payer MEDICARE, OTHER ==
[2023-07-18 17:40] LABS: Basophils % (A) 0 %; Eosinophils # (A) 0.2 k/uL (0-0.7); Eosinophils % (A) 2 %; HCT 35.8 % (34.0-46.0); HGB 11.7 gm/dL (11.4-16.0); Lymphocytes # (A) 1.9 k/uL (1.0-4.8); Lymphocytes % (A) 21 %; MCH 33.1 pg (25.0-35.0); MCHC 32.8 g/dL (31.0-37.0); Mean Platelet Volume 8.1; Monocytes # (A) 0.5 k/uL (0-1.0); Monocytes % (A) 6 %; Neutrophils # (A) 6.2 k/uL (1.3-7.7); Neutrophils % (A) 69 %; Platelet Count 407 k/uL (150-450); RBC 3.54 m/uL (3.80-5.40); RDW 12.8 % (11.5-15.5); WBC 8.9 k/uL (3.8-10.6)
[2023-07-18 17:49] LABS: African American GFR (CKD) >90 (>60 ml/min/1.73 sqM); Anion Gap 8 mmol/L; Blood Urea Nitrogen 15 mg/dL (7-17); Calcium 9.8 mg/dL (8.4-10.2); Carbon Dioxide 26 mmol/L (22-30); Chloride 103 mmol/L (98-107); Glucose 78 mg/dL (74-99); Non-African American GFR(CKD) >90 (>60 ml/min/1.73 sqM); Potassium 4.6 mmol/L (3.5-5.1); Sodium 137 mmol/L (137-145)
[2023-07-18 18:18] LABS: Ionized Calcium 5.3 mg/dL (4.5-5.3)
[2023-07-18 19:01] LABS: RBC Morphology Normal
[2023-07-19 04:15] LABS: Albumin 4.4 g/dL (3.8-4.9)
== END | disposition home or self-care (01) ==
LOC: LABWHC1 15:20
PROVIDERS: ATTEND Internal Medicine
DX: E83.52 Hypercalcemia (principal)
CPT/HCPCS: 36415; 80048; 82330; 82652; 83970; 84165; 85025

== ENCOUNTER → 2023-08-01 | Outpatient (CLI) | payer MEDICARE, OTHER | END | disposition home or self-care (01) | LOC: LABWHC1 12:10 | PROVIDERS: ATTEND Internal Medicine | DX: E83.52 Hypercalcemia (principal) | CPT/HCPCS: 36415 ==

== ENCOUNTER → 2024-02-14 | Outpatient (CLI) | payer MEDICARE, OTHER ==
--- NOTE | 2024-02-14 14:52 | US ---
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 Patient states hx of mini stroke. TECHNIQUE: Carotid duplex ultrasound examination. Indirect Doppler criteria was utilized. 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 IMPRESSION: 1. Mild intimal thickening in the carotid bifurcations. 2. No stenosis based on color and doll scale imaging or peak systolic velocities and ratios. Criteria for Assigning % of Stenosis / Diameter reduction (Estimation based on the indirect measurements of the internal carotid artery velocities (ICA PSV). 1. Normal (no stenosis)=ICA PSV < 125 cm/s: ratio < 2.0: ICA EDV<40 cm/s. 2. Less than 50% stenosis=ICA PSV < 125 cm/s: ratio < 2.0: ICA EDV<40 cm/s. 3. 50 to 69% stenosis=ICA PSV of 125 to 230 cm/s: ration 2.0 ? 4.0: ICA EDV 40-100 cm/s. 4. Greater than 70% stenosis to near occlusion= ICA PSV > 230 cm/s: ratio > 4.0: ICA EDV > 100 cm/s. 5. Near occlusion= ICA PSV velocities may be low or undetectable: variable ratio and ICA EDV. 6. Total occlusion=unable to detect flow.
== END | disposition home or self-care (01) ==
LOC: RADUSWWP 14:11
PROVIDERS: ATTEND Internal Medicine
DX: I65.23 Occlusion and stenosis of bilateral carotid arteries (principal)
CPT/HCPCS: 93880

== ENCOUNTER → 2024-02-29 | Outpatient (CLI) | payer MEDICARE, OTHER ==
--- NOTE | 2024-03-17 11:08 | CTL ---
EXAMINATION TYPE: CT Low Dose Lung DATE OF EXAM: 02/29/2024 10:05 AM CLINICAL INDICATION:Female, 63 years old with history of Z12.2 SCREENING; h/o tobacco use 3ppd x40 ye ars, quit 12 years ago , history of tobacco use. COMPARISON: None. TECHNIQUE: Multiple axial non-contrast scans were obtained from approximately the lung apices through the upper abdomen. Coronal and sagittal reformatted images were obtained. Low dose technique was uti lized. CT DLP: 70.4 mGycm, Automated exposure control for dose reduction was used. CT Contrast: Contrast used: None Oral contrast used: None FINDINGS: ======== Lack of intravenous contrast and low dose technique limits the evaluation of the vascular and soft ti ssue structures. LUNGS: No evidence of pulmonary fibrosis. No evidence of focal consolidation, pneumothorax or pleural effusion. Nodules: RUL: None. RML: None. RLL: None. POP: None. LLL: None. AIRWAY: Patent and unremarkable. HEART: Size within normal limits. No calcific coronary artery disease. MEDIASTINUM: No gross evidence of adenopathy. VASCULATURE: No aortic aneurysm. MUSCULOSKELETAL: No acute osseous abnormalities SOFT TISSUES/LYMPH NODES: Unremarkable. LOWER NECK: No significant findings. UPPER ABDOMEN: No significant findings. IMPRESSION: 1. No clinically significant pulmonary nodules. CT LUNG RAD AND CT CHEST RECOMMENDATION: Lung-Rad 1 Negative: Continue annual screening with LDCT in 12 months. S Modifier (other clinically significant findings): None Recommend smoking cessation (if current smoker), or continuation of smoking cessation (if prior smoke r). Annual screening for lung cancer with low-dose computed tomography is recommended in adults ages 55 to 77 years who have a 30 pack-year smoking history and currently smoke or have quit within the pa st 15 years. Screening should be discontinued once a person has not smoked for 15 years or develops a health problem that substantially limits life expectancy or the ability or willingness to have curat daniel lung surgery. Lung rads 2021 [email or web address]
== END | disposition home or self-care (01) ==
LOC: RADCTMAIN 08:03
PROVIDERS: ATTEND Internal Medicine
DX: Z12.2 Encounter for screening for malignant neoplasm of respiratory organs (principal); Z87.891 Personal history of nicotine dependence
CPT/HCPCS: 71271

== ENCOUNTER → 2024-02-29 | Outpatient (CLI) | payer MEDICARE, OTHER ==
--- NOTE | 2024-02-29 10:22 | MM ---
Reason for Exam: Clinical finding. Patient History: Menarche at age 13. First Full-Term at age 22. Postmenopausal. Risk Values: Kathy 5 year model risk: 1.3%. NCI Lifetime model risk: 5.3%. Tissue Density: Right: There are scattered areas of fibroglandular density. Findings: Analyzed By CAD. A 7 mm circumscribed low density nodule approximately 11:00 position remains unchanged. Areas of asymmetric density are also stable. Palpable marker placed at the right axilla. Overall Assessment: Incomplete: need additional imaging evaluation, BI-RAD 0 Management: Diagnostic Breast Ultrasound of the right breast. Electronically signed and approved by: Cierra Simmons M.D. Radiologist
--- NOTE | 2024-02-29 10:24 | USB ---
Reason for Exam: Clinical finding. Patient History: Menarche at age 13. First Full-Term at age 22. Postmenopausal. Risk Values: Kathy 5 year model risk: 1.3%. NCI Lifetime model risk: 5.3%. Technique: Method: Targeted. Findings: The upper outer quadrant of the right breast, the axilla of the right breast and the retroareolar of the right breast were scanned. Targeted ultrasound upper outer quadrant right breast 10:00 to 12:00 including scanning of the axillary palpable site. At the axilla, a benign, nonenlarged 1.2 cm lymph node is noted. No other solid or cystic lesion. There are dense tissues are present. Overall Assessment: Benign, BI-RAD 2 Management: Screening Mammogram of both breasts in 2 months. In time for the patient's annual exam. Further clinical management of any suspicious palpable areas. A clinical breast exam by your physician is recommended on an annual basis and results should be correlated with mammographic findings. This exam should not preclude additional follow-up of suspicious palpable abnormalities. Results were given to the patient verbally at the time of exam. Electronically signed and approved by: Cierra Simmons M.D. Radiologist
== END | disposition home or self-care (01) ==
LOC: RADMAMWWP 07:58
PROVIDERS: ATTEND Internal Medicine
DX: R22.31 Localized swelling, mass and lump, right upper limb (principal); R92.321 Mammographic fibroglandular density, right breast; Z78.0 Asymptomatic menopausal state
CPT/HCPCS: 77061; 77065

== ENCOUNTER → 2024-10-17 | Outpatient (CLI) | payer MEDICARE, OTHER ==
--- NOTE | 2024-10-17 14:27 | XR ---
EXAMINATION TYPE: XR shoulder complete RT DATE OF EXAM: 10/17/2024 2:19 PM INDICATION: Patient age:Female; 64 years old; Reason for study: M25.511 PAIN; pain COMPARISON: None TECHNIQUE: The right shoulder was examined in AP, internally rotated and scapular Y projections. . FINDINGS: No evidence of acute osseous pathology, joint dislocation, or soft tissue swelling. AC joint arthropa thy with joint space narrowing and undersurface spurring. Superior osteophyte demonstrate. The remain ing portions of the visualized chest are unremarkable. IMPRESSION: 1. No acute osseous pathology. 2. Mild to moderate right AC joint arthropathy. [facility], , 10/17/2024 2:25 PM
--- NOTE | 2024-10-17 16:12 | BD ---
EXAMINATION TYPE: Axial Bone Density DATE OF EXAM: 10/17/2024 CLINICAL HISTORY: 64 years old Female. ICD-10 CODE: M85.80 OTH DISRD OF BONE DENSITY AND STRUCTURE, UN , Additional History: Height: 61.5 Weight: 140 FRAX RISK QUESTIONS: Family History (Parent hip fracture): yes Secondary Osteoporosis: RISK FACTORS HISTORY OF: MEDICATIONS: EXAM MEASUREMENTS: Bone mineral densitometry was performed using the [employer]. Bone mineral density as measured about the Lumbar spine is: ----- L1-L4(G/cm2): 1.264 T Score Values are as follows: ----- L1: -0.6 ----- L2: 0.6 ----- L3: 1.1 ----- L4: 1.3 ----- L1-L4: 0.7 Z Score Values are as follows: ----- L1: 1.1 ----- L2: 2.3 ----- L3: 2.8 ----- L4: 3.0 ----- L1-L4: 2.3 Bone mineral density has: Increased 8.5% since study of: 04-13-22 Bone mineral density about the R hip (g/cm2): 0.794 Bone mineral density about the L hip (g/cm2): 0.802 T Score values are as follows: -----R Neck: -1.9 -----L Neck: -2.2 -----R Total: -1.7 -----L Total: -1.6 Z Score values are as follows: -----R Neck: -0.4 -----L Neck: -0.7 -----R Total: -0.5 -----L Total: -0.4 Bone mineral density has: Decreased -5.0% since study of: 04-13-22 FRAX%s: The graph provided illustrates a 21.5% chance for a major osteoporotic fx and a 2.2% chance f or the hips probability for fx in 10 years time. IMPRESSION: Osteopenia (T Score between -2.5 and -1). There is slightly increased risk of fracture and the patient may be considered for treatment. Re-Screen 2-5 years. NOTE: T-SCORE=SD OF THE YOUNG ADULT MEAN. [facility], , 10/17/2024 4:10 PM
== END | disposition home or self-care (01) ==
LOC: RADBDWWP 13:51
PROVIDERS: ATTEND Internal Medicine
DX: M19.011 Primary osteoarthritis, right shoulder (principal); M85.89 Other specified disorders of bone density and structure, multiple sites
CPT/HCPCS: 77080

== ENCOUNTER → 2024-11-12 | Outpatient (CLI) | payer MEDICARE, OTHER ==
--- NOTE | 2024-11-12 15:21 | US ---
EXAMINATION TYPE: US carotid duplex BILAT DATE OF EXAM: 11/12/2024 COMPARISON: US 02/14/2024 CLINICAL INDICATION: Female, 64 years old with history of I65.21 OCCLUSION AND STENOSIS CAROTID ARTER Y; Prior smoker, hypertension, hyperlipidemia. Hx TIA Additional History: .... TECHNIQUE: Grayscale, color Doppler and spectral Doppler evaluation of the bilateral carotid systems and vertebral arteries. Indirect Doppler criteria was utilized. 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 IMPRESSION: No evidence of hemodynamically significant stenosis Criteria for Assigning % of Stenosis / Diameter reduction (Estimation based on the indirect measurements of the internal carotid artery velocities (ICA PSV). 1. Normal (no stenosis)=ICA PSV < 125 cm/s: ratio < 2.0: ICA EDV<40 cm/s. 2. Less than 50% stenosis=ICA PSV < 125 cm/s: ratio < 2.0: ICA EDV<40 cm/s. 3. 50 to 69% stenosis=ICA PSV of 125 to 230 cm/s: ration 2.0 ? 4.0: ICA EDV 40-100 cm/s. 4. Greater than 70% stenosis to near occlusion= ICA PSV > 230 cm/s: ratio > 4.0: ICA EDV > 100 cm/s. 5. Near occlusion= ICA PSV velocities may be low or undetectable: variable ratio and ICA EDV. 6. Total occlusion=unable to detect flow. [facility], , 11/12/2024 3:18 PM
== END | disposition home or self-care (01) ==
LOC: RADUSWWP 14:46
PROVIDERS: ATTEND Internal Medicine
DX: I65.21 Occlusion and stenosis of right carotid artery (principal)
CPT/HCPCS: 93880

== ENCOUNTER → 2025-03-11 | Outpatient (CLI) | payer MEDICARE, OTHER ==
--- NOTE | 2025-03-11 19:21 | CTL ---
EXAMINATION TYPE: CT Low Dose Lung DATE OF EXAM: 03/11/2025 7:11 PM COMPARISON: 02/29/2024 CLINICAL INDICATION: Female, 64 years old with history of Z87.891; F/u lung screening for nicotine de pendence of 3ppd x40 years, not current smoker, hx of copd, history of tobacco use. TECHNIQUE: Multiple axial non-contrast scans were obtained from approximately the lung apices through the upper abdomen. Coronal and sagittal reformatted images were obtained. Low dose technique was uti lized. MIP were created on a separate workstation and submitted for review. CT DLP: 69.8 mGycm, Automated exposure control for dose reduction was used. CT Contrast: Contrast used: None Oral contrast used: None FINDINGS: Lack of intravenous contrast and low dose technique limits the evaluation of the vascular and soft ti ssue structures. LUNGS: No evidence of pulmonary fibrosis. No evidence of focal consolidation, pneumothorax or pleural effusion. Centrilobular emphysema changes. Nodules: RUL: None. RML: None. RLL: None. POP: None. LLL: None. AIRWAY: Patent and unremarkable. HEART: Size within normal limits. No significant coronary artery calcifications. MEDIASTINUM: No gross evidence of adenopathy. VASCULATURE: No aortic aneurysm. MUSCULOSKELETAL: No acute osseous abnormalities SOFT TISSUES/LYMPH NODES: Unremarkable. LOWER NECK: No significant findings. UPPER ABDOMEN: No significant findings. IMPRESSION: 1. No clinically significant pulmonary nodules. 2. Mild emphysema. CT LUNG RAD AND CT CHEST RECOMMENDATION: Lung-Rad 1 Negative: Continue annual screening with LDCT in 12 months. S Modifier (other clinically significant findings): None Recommend smoking cessation (if current smoker), or continuation of smoking cessation (if prior smoke r). Annual screening for lung cancer with low-dose computed tomography is recommended in adults ages 55 to 77 years who have a 30 pack-year smoking history and currently smoke or have quit within the pa st 15 years. Screening should be discontinued once a person has not smoked for 15 years or develops a health problem that substantially limits life expectancy or the ability or willingness to have curat daniel lung surgery. Lung rads 2021 [email or web address] [facility], , 03/11/2025 7:19 PM
--- NOTE | 2025-03-12 11:36 | MR ---
EXAMINATION TYPE: MR shoulder RT wo con DATE OF EXAM: 03/11/2025 8:28 PM COMPARISON: None. CLINICAL INDICATION: Female, 64 years old with history of M25.511 PAIN IN RIGHT SHOULDER, Right shoul leodan pain, difficult to lift arm or hold anything with weight x4-6 months IV Contrast: cc (None if empty) TECHNIQUE: Multiplanar, multisequence imaging of the right shoulder is performed without contrast. 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 The glenohumeral joint is mildly degenerated with mil d thinning of the articular cartilage. There is marked subdeltoid bursitis. There are subchondral cysts in the posterior lateral humeral head near the attachment of the infraspi natus. There are small rim rent tears of the infraspinatus. There is a full-thickness tear of the supraspinatus at its attachment and there are intrasubstance te ars of the supraspinatus at the musculotendinous junction. There is mild tendinosis of the subscapularis tendon but knows tear. There are intrasubstance tears o f the long head of the biceps tendon which is not dislocated. There is a SLAP tear of the superior ca rtilaginous labrum at the biceps anchor. IMPRESSION: 1. Marked degeneration of the AC joint resulting in mild shoulder impingement and marked subdeltoid b ursitis. 2. Multiple tears of the supraspinatus, rim rent tears of the infraspinatus and tendinosis of the sub scapularis tendon. 3. Intrasubstance tear of the long head of the biceps tendon. 4. SLAP tear of the cartilaginous labrum [facility], , 03/12/2025 11:34 AM
== END | disposition home or self-care (01) ==
LOC: RADCTMAIN 18:25
PROVIDERS: ATTEND Internal Medicine
DX: Z12.2 Encounter for screening for malignant neoplasm of respiratory organs (principal); S43.431A Superior glenoid labrum lesion of right shoulder, initial encounter; S46.111A Strain of muscle, fascia and tendon of long head of biceps, right arm, initial encounter; J43.2 Centrilobular emphysema; M25.811 Other specified joint disorders, right shoulder; M67.813 Other specified disorders of tendon, right shoulder; Z87.891 Personal history of nicotine dependence
CPT/HCPCS: 71271